=== PATIENT | male | born 1950 | race Caucasian/White ===

== ENCOUNTER 2024-02-13 03:04 | Outpatient (CLI) | payer MEDICARE, SELFPAY ==
[2024-02-13 12:23] LABS: HCT 49.9 % (40.0-50.0); HGB 16.9 g/dL (13.5-17.5); MCH 33.3 pg (27.0-33.0); MCHC 33.9 % (32.0-36.0); MCV 98 fL (80-95); MPV 9.2 fL (8.0-11.0); Platelet Count 309 10^3/uL (130-400); RBC 5.08 10^6/uL (4.36-5.78); RDW 12.7 % (11.8-14.1); RDW-SD 46.5 fL; WBC 9.51 10^3/uL (4.4-10.8)
[2024-02-13 12:36] LABS: Hemoglobin A1C 7.8 % (<5.7)
[2024-02-13 12:44] LABS: COMMENT (LAB VIEW ONLY) 158.85 mg/dL; Microalb ug/mg Crea 17.3 ug/mg Cr
[2024-02-13 12:50] LABS: ALT 26 U/L (16-63); AST 14 U/L (15-37); Albumin 4.2 g/dL (3.4-5.0); Alkaline Phosphatase 62 U/L (46-116); Anion Gap 11.1 mmol/L (3-11); BUN 14 mg/dL (7-18); Bilirubin, Total 0.73 mg/dL (0.2-1.0); CO2 25.9 mmol/L (21.0-32.0); Calcium 9.5 mg/dL (8.5-10.1); Calculated LDL 80 mg/dL (<100); Chloride 105 mmol/L (98-107); Cholesterol 147 mg/dL (<200); Estimated GFR 79.47 (mL/min/1.73m2); Glucose 161 mg/dL (74-106); HDL Cholesterol 48 mg/dL (40-60); Potassium 4.4 mmol/L (3.5-5.1); Sodium 142 mmol/L (136-145); TSH (W/Ref FT4) 2.21 uIU/mL (0.36-3.74); Total Protein 7.9 g/dL (6.4-8.2); Triglyceride 97 mg/dL (<150)
== END 2024-02-13 03:05 | disposition home or self-care (01) ==
LOC: LOS 03:04
PROVIDERS: PCP Family Medicine; Visit Provider Family Medicine
DX: I10 Essential (primary) hypertension (principal); R53.83 Other fatigue; E11.9 Type 2 diabetes mellitus without complications; E03.9 Hypothyroidism, unspecified
CPT/HCPCS: 36415; 80053; 80061; 85027; 82043; 82570; 83036; 84443